=== PATIENT | female | born 1995 | race Caucasian/White ===

== ENCOUNTER → 2018-07-23 | Outpatient (CLI) | payer OTHER ==
[~2018-07-23] MED LIST: AZIT250 PO; HYDACE5 PO; HYDR1TAB94 PO; IBUP800 PO; IRON325 MG; LABE100; MEDR10 PO; METCAR750 PO; METO10 PO; OXYACE10; OXYACE5T PO; SULF10OPSA OU; Verotin-Gr Cap1 EACH PO
== END | disposition home or self-care (01) ==
LOC: LAB SHORT 15:22 → LAB 15:22
PROVIDERS: Obstetrics & Gynecology
DX: Z01.419 Encounter for gynecological examination (general) (routine) without abnormal findings (principal)
CPT/HCPCS: G0123

== ENCOUNTER → 2020-07-21 | Outpatient (CLI) | payer OTHER ==
[2020-07-22 15:38] LABS: Protein, Urine Quantitative 17.5 mg/dL (0.0-11.9)
== END | disposition home or self-care (01) ==
LOC: LAB SHORT 08:30 → LAB 08:30
PROVIDERS: Obstetrics & Gynecology
DX: R03.0 Elevated blood-pressure reading, without diagnosis of hypertension (principal)
CPT/HCPCS: 81050; 84156

== ENCOUNTER 2020-10-27 10:01 | Inpatient (IN) | payer OTHER ==
[~2020-10-27] VITALS: Ht 170.2 cm; Wt 126.0 kg
[2020-10-27] MEDS ORDERED: ASPI81CH PO (12:29)
[2020-10-27] MEDS ORDERED: PNV TABS 20-11 EACH PO (12:29)
[2020-10-27 12:55] LABS: BASOPHILS ABSOLUTE AUTO 0.06 K/mm3 (0.00-0.23); BASOPHILS PERCENT AUTO 1 % (0-2); EOSINOPHILS ABSOLUTE AUTO 0.04 K/mm3 (0.00-0.68); EOSINOPHILS PERCENT AUTO 0 % (0-6); Hematocrit 39.3 % (33.0-51.0); Hemoglobin 13.2 g/dL (11.5-16.0); IMMATURE GRAN ABSOLUTE AUTO 0.08 K/mm3 (0.00-0.10); IMMATURE GRAN PERCENT AUTO 1 % (0-1); LYMPHOCYTES PERCENT AUTO 16 % (21-46); MONOCYTES ABSOLUTE AUTO 0.77 K/mm3 (0.16-1.47); MONOCYTES PERCENT AUTO 6 % (4-13); Mean Corpuscular HGB Conc 33.6 g/dL (31.5-36.5); Mean Corpuscular Volume 83 fL (80-100); NEUTROPHILS ABSOLUTE AUTO 10.23 K/mm3 (1.96-9.15); NEUTROPHILS PERCENT AUTO 77 % (41-73); Platelet Count 155 K/mm3 (150-400); RDW Coefficient Variation 14.2 % (11.7-14.2); RDW Standard Deviation 43.1 fL (35.1-46.3); Red Blood Cell Count 4.71 M/mm3 (3.80-5.20); White Blood Cell Count 13.28 K/mm3 (4.00-11.30)
[2020-10-27 12:56] LABS: Mean Platelet Volume 13.2 fL (9.1-12.4)
[2020-10-27 13:38] LABS: SARS-Cov-2 (COVID-19) PCR, MMC NEGATIVE (NEGATIVE)
--- NOTE | 2020-10-27 18:58 | NUR ---
MD AWARE OF ELEVATED BP'S PRIOR TO DELIVERY AND JUST POST DELIVERY. NO ORDERS WERE GIVEN AT THAT TIME. BP'S CAME DOWN WHEN PT WAS PLACED IN LOW LYING POSITION AT 1659. BP REMAINED 130'S OVER 70'S AND 80'S UNTIL 1811 WHEN BP SPIKED TO 147/91 THEN 159/97 WHILE PT WAS IN LOW LYING POSIITON SLEEPING . THEN MD WAS CALLED AND UPDATED AND NO MEDICATION ORDERS GIVEN. MD STATES IF BP GOES TO 160/100 TO CALL THE WREATH INSPECTOR MD FOR POSSIBLE ORDERS.
--- NOTE | 2020-10-27 19:06 | NUR ---
DR SALDANA CALLED TO STATE THAT RN'S SHOULD CALL [employer] WORKER DR CHRISSIE CABALLERO IF BP IS SUSTAINED ABOVE 160'S/100'S FOR SEVERAL READINGS EVEN AFTER ADJUSTING CUFF AND REPOSITIONING PT.
--- NOTE | 2020-10-27 19:24 | NUR ---
SUSPECT ERROR IN ELEVATED BP READING. PT WAS MOVING. CUFF CHANGED FROM WRIST CUFF TO LARGE CUFF ON RIGHT UPPER ARM. BP RECHECKED AND WNL. PT ASYMPTOMATIC FOR ELEVATED BP'S
--- NOTE | 2020-10-27 22:28 | NUR ---
FRESH ICE WATER TAKEN IN TO PT. BED MADE FOR FOB.
--- NOTE | 2020-10-28 00:05 | NUR ---
PT EDUCATED ABOUT NOT SLEEPING WITH IN BED WITH HER. PT VERBALIZES UNDERSTANDING OF ON HIS BACK IN THE CRIB TO SLEEP.
--- NOTE | 2020-10-28 03:48 | NUR ---
10/28/20 0345 pt sleeping soundly; baby sleeping crib; vs held for pt to rest
== END 2020-10-28 16:05 | disposition home or self-care (01) | DRG 807 ==
LOC: OBS 10:01 → BC 10:02 → OBS 12:25 → BC 12:27
PROVIDERS: ADMIT Obstetrics & Gynecology
PROC: 10E0XZZ Delivery of Products of Conception, External Approach (ICD-10-PCS; principal; 2020-10-27)
DX: O99.214 Obesity complicating childbirth (principal); Z37.0 Single live birth; Z3A.38 38 weeks gestation of pregnancy; O99.824 Streptococcus B carrier state complicating childbirth; O13.4 Gestational [pregnancy-induced] hypertension without significant proteinuria, complicating childbirth; Z20.822 Contact with and (suspected) exposure to COVID-19; O70.0 First degree perineal laceration during delivery; E66.9 Obesity, unspecified; O99.334 Smoking (tobacco) complicating childbirth; F17.210 Nicotine dependence, cigarettes, uncomplicated; Z90.89 Acquired absence of other organs; Z79.82 Long term (current) use of aspirin; Z79.899 Other long term (current) drug therapy
CPT/HCPCS: 36415; 59025; 85025; A9270; J0290; J1885; J2210; J2405; J2590; J3010; J7120; U0004

== ENCOUNTER → 2023-03-13 | Outpatient (CLI) | payer OTHER ==
[~2023-03-13] MED LIST changes: +ASPI81CH PO; +PNV TABS 20-11 EACH PO
== END ==
LOC: LAB SHORT 16:52
DX: O09.893 Supervision of other high risk pregnancies, third trimester (principal); Z3A.00 Weeks of gestation of pregnancy not specified
CPT/HCPCS: 87081; 87150

== ENCOUNTER 2023-04-05 14:59 | Inpatient (IN) | payer OTHER ==
[~2023-04-05] VITALS: Ht 170.2 cm; Wt 123.6 kg
[2023-04-05] VITALS (15 sets, daily range): BP systolic 121–153; BP diastolic 73–106
[2023-04-05 16:12] LABS: BASOPHILS ABSOLUTE AUTO 0.04 K/mm3 (0.00-0.23); BASOPHILS PERCENT AUTO 0 % (0-2); EOSINOPHILS ABSOLUTE AUTO 0.05 K/mm3 (0.00-0.68); EOSINOPHILS PERCENT AUTO 0 % (0-6); Hematocrit 37.2 % (33.0-51.0); Hemoglobin 12.5 g/dL (11.5-16.0); IMMATURE GRAN ABSOLUTE AUTO 0.08 K/mm3 (0.00-0.10); IMMATURE GRAN PERCENT AUTO 1 % (0-1); LYMPHOCYTES ABSOLUTE AUTO 2.02 K/mm3 (0.84-5.20); LYMPHOCYTES PERCENT AUTO 17 % (21-46); MONOCYTES ABSOLUTE AUTO 0.73 K/mm3 (0.16-1.47); MONOCYTES PERCENT AUTO 6 % (4-13); Mean Corpuscular HGB 27.2 pg (26.0-34.0); Mean Corpuscular HGB Conc 33.6 g/dL (31.5-36.5); Mean Corpuscular Volume 81 fL (80-100); Mean Platelet Volume 11.3 fL (9.1-12.4); NEUTROPHILS PERCENT AUTO 76 % (41-73); Platelet Count 225 K/mm3 (150-400); RDW Coefficient Variation 14.2 % (11.7-14.2); RDW Standard Deviation 41.1 fL (35.1-46.3); White Blood Cell Count 12.02 K/mm3 (4.00-11.30)
--- NOTE | 2023-04-05 23:02 | NUR ---
PATIENT REPORTED CONCERN R/T TO AMOUNT OF BLEEDING. THIS RN WEIGHED THE PADS THE PATIENT WAS CONCERNED ABOUT AND THE QBL WAS 222G. PADS WERE USED BETWEEN 2150 AND 2250.
--- NOTE | 2023-04-05 23:27 | NUR ---
REASSESSED PATIENT WITH TWO RNS. BLEEDING HAS SLOWED AND UTERUS IS FIRM. BP TOO HIGH FOR METHERGINE AT THIS POINT. HANDOFF REPORT GIVEN.
[2023-04-06 01:59] VITALS: BP 129/67
[2023-04-06 05:06] VITALS: BP 126/79
[2023-04-06 08:35] VITALS: BP 124/75
[2023-04-06 17:07] VITALS: BP 143/85
--- NOTE | 2023-04-06 17:12 | NUR ---
MOTHER GOT A GOOD NAP IN. CARING FOR SELF AND BABY INDEPENDANTLY. PLAN TO PUT TO BOARDER STATUS TONIGHT. WORKING ON PAPERWORK NOW. DENIES NEED FOR PAIN MEDICATIONS.
[2023-04-06 19:49] VITALS: BP 135/80
== END 2023-04-06 21:40 | disposition home or self-care (01) | DRG 807 ==
LOC: OBS 14:59 → BC 15:00 → OBS 15:29 → BC 15:33
PROVIDERS: ADMIT Obstetrics & Gynecology
PROC: 10E0XZZ Delivery of Products of Conception, External Approach (ICD-10-PCS; principal; 2023-04-05)
PROC: 10907ZC Drainage of Amniotic Fluid, Therapeutic from Products of Conception, Via Natural or Artificial Opening (ICD-10-PCS; 2023-04-05)
PROC: 10H073Z Insertion of Monitoring Electrode into Products of Conception, Via Natural or Artificial Opening (ICD-10-PCS; 2023-04-05)
DX: O99.214 Obesity complicating childbirth (principal); Z37.0 Single live birth; Z3A.38 38 weeks gestation of pregnancy; O99.824 Streptococcus B carrier state complicating childbirth; O71.82 Other specified trauma to perineum and vulva; O99.334 Smoking (tobacco) complicating childbirth; F17.210 Nicotine dependence, cigarettes, uncomplicated; O99.344 Other mental disorders complicating childbirth; F32.9 Major depressive disorder, single episode, unspecified; Z88.0 Allergy status to penicillin; Z28.21 Immunization not carried out because of patient refusal
CPT/HCPCS: 36415; 85025; 86850; 86900; 86901; A9270; J1885; J2405; J2590; J3010; J3370; J7050; J7120

== ENCOUNTER 2024-02-12 10:46 | Emergency (ER) | payer OTHER ==
[~2024-02-12] VITALS: Ht 170.2 cm; Wt 104.3 kg
[2024-02-12 10:50] VITALS: BP 162/105
== END 2024-02-12 11:57 | disposition home or self-care (01) ==
LOC: ER 10:46
DX: M79.662 Pain in left lower leg (principal); F17.210 Nicotine dependence, cigarettes, uncomplicated; Z88.0 Allergy status to penicillin; Z79.899 Other long term (current) drug therapy
CPT/HCPCS: 93971; 99283-25